=== PATIENT | male | born 1980 | race Two or more races ===

== ENCOUNTER 2020-07-06 17:04 | Emergency (ER) | payer OTHER ==
[2020-07-06] MEDS ORDERED: ACETAMINOPHEN 325 MG TABLET PO ONE (17:23)
[2020-07-06] MEDS ORDERED: ACETAMINOPHEN 325 MG TABLET ONE (17:29)
--- NOTE | 2020-07-06 17:29 | ER Document Report ---
HPI - HPI Time Seen by Provider: 07/06/20 17:18 Context: Patient is a 40-year-old male who presents emergency department with a chief complaint of a laceration to the left side of his head. Patient states that a pole fell on top of his head. Denies any loss of consciousness. He ended up shaving the area of his head so he can see how bad the laceration was. He attempted to go to urgent care, but there was a 5-hour wait, therefore he went to the emergency department. Denies any blood thinner use. - ROS Systems Reviewed and Negative: Yes All other systems reviewed and negative - CONSTITUTIONAL Constitutional: DENIES: Fever, Chills - EENT EENT: DENIES: Sore Throat, Congestion - NEURO Neurology: DENIES: Weakness, Vision blurred, Dizzinesss / Vertigo - GASTROINTESTINAL Gastrointestinal: DENIES: Nausea, Patient vomiting - MUSCULOSKELETAL Musculoskeletal: DENIES: Extremity pain - DERM Skin Color: Normal Skin Problems: Laceration - Left side of scalp Past Medical History - General Information source: Patient - Social History Smoking Status: Unknown if Ever Smoked Family History: Reviewed & Not Pertinent Vertical Provider Document - CONSTITUTIONAL Agree With Documented VS: Yes Exam Limitations: No Limitations General Appearance: No Apparent Distress - HEENT HEENT: Normocephalic, PERRLA. negative: Atraumatic - Laceration noted to left side of head - NECK Neck: Normal Inspection, Supple - RESPIRATORY Respiratory: No Respiratory Distress - CARDIOVASCULAR Cardiovascular: Regular Rate, Regular Rhythm Pulses: Normal: Radial - MUSCULOSKELETAL/EXTREMETIES Musculoskeletal/Extremeties: FROM - NEURO Level of Consciousness: Awake, Alert, Appropriate Motor/Sensory: No Motor Deficit, No Sensory Deficit Deep Tendon Reflexes: 2+ - DERM Integumentary: Warm, Dry, No Rash, Laceration - Well approximated to left side of head about 2-1/2 cm in length Course - Re-evaluation Re-evalutation: 07/06/20 17:59 Laceration was cleaned with Shur-Clens. No active bleeding noted. No large laceration noted. The edges were already approximated together. Patient will be sent home with head injury precautions. I have a low suspicion for an intracranial bleed. No neurological deficits noted. Follow-up precautions were given. Verbal discharge instructions were given to the patient. They verbalized understanding. They are stable for discharge. - Vital Signs Vital signs: Temp Pulse Resp BP Pulse Ox 98.2 F 76 20 136/96 H 98 07/06/20 17:08 07/06/20 17:08 07/06/20 17:08 07/06/20 17:08 07/06/20 17:08 Discharge - Discharge Clinical Impression: Laceration of head Qualifiers: Encounter type: initial encounter Location of open wound of head: scalp Foreign body presence: without foreign body Qualified Code(s): S01.01XA - Laceration without foreign body of scalp, initial encounter Condition: Stable Disposition: HOME, SELF-CARE Instructions: Antibiotic Ointment Protection ([facility]) Additional Instructions: You were seen today in the emergency department for a scalp laceration. You do not require marina. Take Tylenol 1000 mg every 6 hours as needed for headache. Return if you have any of the symptoms: (1) Mental confusion (2) Incoordination or staggering (3) Repeated or forceful vomiting (4) Clear or bloody drainage from ear, mouth, or nose (5) Severe headache, not relieved by acetaminophen or prescribed pain medication (6) Failure to improve in 24 hours
[2020-07-06 18:23] VITALS: BP 121/86
== END 2020-07-06 18:08 | disposition home or self-care (01) ==
LOC: ER 17:04
DX: S01.01XA Laceration without foreign body of scalp, initial encounter (principal); W20.8XXA Other cause of strike by thrown, projected or falling object, initial encounter
CPT/HCPCS: 99282